=== PATIENT | female | born 1960 | race Caucasian/White ===

== ENCOUNTER → 2016-10-20 | Outpatient (CLI) | payer BC | END | disposition home or self-care (01) | LOC: GMAB 13:05 | PROVIDERS: ATTEND Family Medicine | DX: R59.9 Enlarged lymph nodes, unspecified (principal) ==

== ENCOUNTER → 2016-10-24 | Outpatient (CLI) | payer BC ==
--- NOTE | 2016-10-25 08:13 | US ---
EXAM DESCRIPTION: Soft Tissue,Head/Neck CLINICAL HISTORY: 56 years Female, [place] COMPARISON: None. FINDINGS: The right lobe of the thyroid is 3.7 x 1.7 x 1.1 cm and the left lobe 4.0 x 1.9 x 1.7 cm. The isthmus is 5 mm in thickness. On the right, laterally in the midportion of the thyroid is an elongated wider than tall 1.4 x 0.9 x 0.5 cm hypoechoic solid nodule. Additional nodules or cysts are not apparent. On the left there is a dominant slightly heterogeneous hypoechoic solid nodule 2.6 x 1.7 x 1.2 cm in the mid thyroid with an additional hypoechoic solid lower pole nodule 1.1 x 1.0 x 0.8 cm that is wider than tall. Fine-needle aspiration of the dominant left thyroid nodule is recommended. IMPRESSION: Multinodular thyroid with a solitary is nodule on the right and two on the left with a dominant mid lobe left thyroid nodule 2.6 cm in maximal diameter. Fine-needle aspiration of this mid left lobe thyroid nodule recommended. Electronically signed by: Martín Rios MD 10/25/2016 8:11 AM CDT
== END | disposition home or self-care (01) ==
LOC: US 10:54
PROVIDERS: ATTEND Family Medicine
DX: E04.9 Nontoxic goiter, unspecified (principal)

== ENCOUNTER → 2016-11-01 | Outpatient (CLI) | payer BC | END | disposition home or self-care (01) | LOC: GMAB 10:29 | PROVIDERS: ATTEND Family Medicine | DX: Z00.00 Encounter for general adult medical examination without abnormal findings (principal) ==

== ENCOUNTER → 2016-11-07 | Outpatient (CLI) | payer BC ==
--- NOTE | 2016-11-07 13:26 | CT ---
EXAM DESCRIPTION: Soft Tissue Neck w/wo Contrast CLINICAL HISTORY: ENLARGED LYMPH NODES COMPARISON: Ultrasound neck soft tissues 10/24/2016. TECHNIQUE: Spiral, axial 2.5 mm scans through the neck soft tissues before and after infusion of IV contrast. Sagittal and coronal 2.0 mm reconstructions. No adverse reactions. Total Exam DLP: 610.21 mGy-cm. This exam was performed according to our departmental CT dose-optimization program which includes automated exposure control, adjustment of the mA and/or kV according to patient size and/or use of iterative reconstruction technique; to reduce radiation dose to as low as reasonably achievable (ALARA). FINDINGS: Irregular region of nonenhancement in the left lobe of the thyroid gland measuring 2.5 cm AP, 1.2 cm transverse, and 2.0 cm craniocaudal. No definite calcifications seen on the precontrast images. Irregular region of nonenhancement in the right lobe measures approximately 5 x 7 x 7 mm. No right lobe calcifications. No parathyroid or juxta thyroid soft tissue masses, calcifications or fluid. Small lymph nodes in the parapharyngeal, carotid, and paracervical spaces. No significant asymmetry effacement or displacement in the included nasopharynx, oropharynx, hypopharynx, larynx. Normal size density and enhancement of the parotid and submandibular glands. Air-fluid level versus focal inflammation in the left sphenoid air cell. Included mastoid air cells and maxillary antra are unremarkable. No significant atherosclerotic calcification aneurysm or stenosis in the bilateral carotid and vertebral systems of the neck. Spondylosis at C4-5, C5-6, and C6-7 with bilateral foraminal narrowing at C5-6 and C6-7. IMPRESSION: 1. Poorly enhancing nodule in the left lobe of the thyroid gland corresponding to recent finding on ultrasound. This nodule meets the imaging criteria for fine needle aspiration sampling according to [facility] Best Practice Guidelines, adopted from ACR white paper and [place]ancock 3-tiered guidelines on incidental thyroid nodules. Please see below.* 2. Small nonenhancing nodule in the right thyroid lobe. 3. No significant lymphadenopathy in the neck. No effacement or displacement of the airway. No subcutaneous soft tissue mass. 4. Focal inflammation or small air-fluid level in the left sphenoid air cell. *Further evaluation by thyroid US recommended for: -Solitary incidental thyroid nodule (ITN) with high risk imaging features (locally invasive nodule or suspicious lymph nodes) -Solitary ITN of any size in pediatric patients <= 18 years of age -Solitary ITN >= 1 cm in axial plane in patients between 18 and 35 years of age -Solitary ITN >= 1.5 cm in axial plane in patients >= 35 years of age -Heterogeneous enlarged thyroid gland -ITN avid on FDG-PET or other nuclear medicine (MIBI and octreotide) scans. FNA biopsy is also recommended for PET avid nodules. 2.No f/u imaging is recommended for ITN's not meeting the above criteria. 3.For multiple thyroid nodules, the above recommendations for solitary ITN are to be applied to the largest nodule. 4.No US or f/u recommended for ITN's without high risk features in patients with limited life expectancy or significant co-morbidities, unless clinically warranted. 5.These recommendations do not apply to patients w/ increased risk for thyroid cancer or patients with symptomatic thyroid disease. Recommendations for f/u of Incidental Thyroid Nodules (ITN) found on CT, MR, NM and Extrathyroidal US are based upon the ACR white paper and Hancock 3-tiered system for managing ITN's: J [facility] 2015 Apr;12(2): 143-50 Electronically signed by: Lukas Esquivel MD 11/07/2016 1:25 PM CDT
== END | disposition home or self-care (01) ==
LOC: CT 09:58
PROVIDERS: ATTEND Family Medicine
DX: E04.1 Nontoxic single thyroid nodule (principal)

== ENCOUNTER → 2016-12-18 | Outpatient (CLI) | payer BC ==
--- NOTE | 2016-12-18 12:47 | MRI ---
EXAM DESCRIPTION: MRI brain without contrast CLINICAL HISTORY: HEADACHE COMPARISON: None Available. TECHNIQUE: Multi planar, multi sequence MRI evaluation of the brain FINDINGS: No intracranial hemorrhage, infarction, or mass lesion. Normal villagran-white matter differentiation. No restricted diffusion. No signal abnormality throughout the brain. No structural abnormality Ventricles are normal in size and configuration Normal flow voids are present in the major intracranial arteries and dural venous sinuses No abnormality is seen along the course of the cranial nerves. Normal appearance of the temporal bones Orbits are grossly normal Normal aeration of paranasal sinuses and mastoid air cells IMPRESSION: Normal noncontrast MRI brain Electronically signed by: Martín Ruelas MD 12/18/2016 12:46 PM CDT
== END | disposition home or self-care (01) ==
LOC: MRI 08:54
PROVIDERS: ATTEND Family Medicine
DX: R51 Headache (principal)

== ENCOUNTER → 2016-12-28 | Outpatient (CLI) | payer BC | END | disposition home or self-care (01) | LOC: GMAB 17:00 | PROVIDERS: ATTEND Family Medicine | DX: M79.1 Myalgia (principal) ==

== ENCOUNTER → 2018-05-16 | Outpatient (CLI) | payer BC ==
--- NOTE | 2018-05-17 15:29 | MAM ---
EXAM DESCRIPTION: 3D Screening BILATERAL : Digital Mammography. CLINICAL HISTORY: 57 years Female SCREENING .. No complaints except for age pain for right nipple. No personal history of cancer. Mother with breast cancer and remote family history of breast cancer. Childbirth. Postmenopausal 10 years. No HRT. Lifetime risk of developing breast cancer (Tyrer-Cuzick model)(%): 15.6. COMPARISON: 2-D digital screening bilateral mammography 03/25/2012.. No prior reports available. TECHNIQUE: Bilateral CC and MLO projection full-field images, digital tomosynthesis mammographic technique. Bilateral digital 2-D full-field MLO images. CAD not available for tomosynthesis or 2-D images. FINDINGS: The breast parenchymal density pattern is: Scattered areas of fibroglandular density. No skin thickening or nipple retraction. Bilateral axillary lymph nodes. Intramammary medial mass density with partially lobulated and partially circumscribed margins in the retroareolar left breast lower inner quadrant approximately 2 cm from the nipple. Stability since the prior examination is not established. Focal asymmetry in the middle third of the left breast 12:00 position 6 cm from the nipple. Not well seen on the prior study. No new focal, stellate mass or density, focal asymmetry , and no suspicious microcalcifications right breast. IMPRESSION: BI-RADS CATEGORY: 0 - INCOMPLETE- Need additional imaging evaluation. FOLLOW-UP: Recall for additional imaging: Targeted left breast ultrasound. Optional diagnostic tomosynthesis left breast depending on ultrasound findings.. Written communication concerning the IMPRESSION and Follow-up, will be mailed to the patient and referring health care provider. Electronically signed by: Lukas Esquivel MD 05/17/2018 3:26 PM CDT
== END ==
LOC: MAMMO 10:30
PROVIDERS: ATTEND Nurse Practitioner Family
DX: Z12.31 Encounter for screening mammogram for malignant neoplasm of breast (principal)

== ENCOUNTER → 2018-05-27 | Outpatient (CLI) | payer BC ==
--- NOTE | 2018-05-27 10:20 | US ---
EXAM DESCRIPTION: Breast,Left: Ultrasound CLINICAL HISTORY: 57 yearsFemaleABNORMAL MAMMO. Anterior left breast mass and posterior left breast focal asymmetry. COMPARISON: Bilateral screening digital breast tomosynthesis 05/16/2018. Ultrasound left breast 04/09/2012. TECHNIQUE: Transcutaneous scanning of the left breast utilizing villagran-scale and Doppler modes. Scanning performed by the data manager and Dr. Esquivel. FINDINGS: Scanning lateral retroareolar left breast is mostly fatty echotexture with minimal fibroglandular tissues. At the 9:00 position, Is a 6.6 x 5.3 mm solid mass with partially circumscribed and partially microlobulated margins, wider than tall orientation, but with posterior acoustic shadowing. The lesion was seen on the prior study in 2012 but more solid centrally with no definite fluid content. Nonvascular. No overlying skin changes or calcifications. Scanning the 12:00 position of the left breast, 6 cm from the nipple. Mixed fibroglandular and fatty echotexture. No dominant solid mass or distinct cyst. No parenchymal edema or large calcifications. No overlying skin changes. No abnormal vascularity. IMPRESSION: BI-RADS CATEGORY 4: SUSPICIOUS. SUB-CATEGORY 4A - LOW SUSPICION FOR MALIGNANCY. Surgical consultation and tissue diagnosis should be considered. The FINDINGS and FOLLOW-UP plan were reviewed in person with the patient following the examination. Written communication explaining the IMPRESSION and FOLLOW-UP will be mailed to the patient and referring care provider. Electronically signed by: Lukas Esquivel MD 05/27/2018 10:17 AM CDT
== END ==
LOC: MAMMO 09:02
PROVIDERS: ATTEND Family Medicine
DX: R92.8 Other abnormal and inconclusive findings on diagnostic imaging of breast (principal)

== ENCOUNTER → 2018-09-12 | Outpatient (CLI) | payer BC | LOC: GMATM 13:49 | PROVIDERS: ATTEND Nurse Practitioner Family | DX: R10.13 Epigastric pain (principal) ==